=== PATIENT | female | born 1965 | race Caucasian/White ===

== ENCOUNTER 2021-12-17 13:16 | Emergency (ER) | payer OTHER, SELFPAY ==
[2021-12-17 13:45] VITALS: BP 148/70; PULSE 94; RESP 18; TEMP 36.4; O2SAT 98
--- NOTE | 2021-12-17 13:48 | ED.NAVMDI ---
HPI - Nausea/Vomiting/Diarrhea General Chief complaint: Nausea/Vomiting/Diarrhea Stated complaint: Vomiting,Diarrhea,lower back pain Time Seen by Provider: 12/17/21 13:48 Source: patient Mode of arrival: ambulatory History of Present Illness HPI Narrative: 56-year-old female with diabetes presented to the ER with a 6 hour history of -- multiple episodes of vomiting. Vomitus is clear. -- Multiple episodes of diarrhea. No abdominal pain or fever. No recent antibiotics. The patient is driving to [facility]. She has been eating out for the past few days. MD elicited complaint: nausea, vomiting and diarrhea Pertinent past history: anorexia Onset (ago): hour(s) ( 6 hours ago) Description of vomiting: watery Description of diarrhea: watery Associated nausea: Yes Associated abdominal pain: No Location of pain: none Severity: moderate Exacerbating factors: none Relieving factors: none Associated symptoms: denies other symptoms Related Data Allergies Allergy/AdvReac Type Severity Reaction Status Date / Time Latex, Natural Rubber Allergy Unknown Verified 12/17/21 14:07 Review of Systems Review of Systems: All systems reviewed & are unremarkable except as noted in HPI and below Constitutional: Constitutional: Reports as per HPI and Reports no additional constitutional complaints Eyes: Eyes: Reports as per HPI and Reports no additional eye complaints ENT: Reports system reviewed and no additional complaints, except as documented Cardiovascular: Cardiovascular: Reports as per HPI and Reports no additional cardiovascular complaints Respiratory: Respiratory: Reports as per HPI and Reports no additional respiratory complaints Gastrointestinal: Gastrointestinal: Reports as per HPI, Reports diarrhea, Reports nausea and Reports vomiting Genitourinary: Genitourinary: Reports no additional female genitourinary complaints Musculoskeletal: Musculoskeletal: Reports no additional musculoskeletal complaints and Reports as per HPI Neurologic: Reports system reviewed and no additional complaints, except as documented and Reports as per HPI Psychiatric: Psychiatric: Reports no additional psychiatric complaints and Reports as per HPI Endocrine: Endocrine: Reports no additional endocrine complaints Hematologic/Lymphatic: Hematologic/Lymphatic: Reports no additional hematologic/lymphatic complaints Allergic/Immunologic: Allergic/Immunologic: Reports no additional allergic/immunologic complaints [facility] Past Medical History Medical History (Updated 12/17/21 @ 16:23 by Irwin Donaldson MD) Diabetes mellitus Exam Const: General: no acute distress and alert Orientation/consciousness: patient oriented x3 HENMT: Head: normal to inspection Eyes: Pupils: Equal, round and reactive pupils present Neck: Neck: normal visual inspection Chest: Chest palpation & inspection: normal inspection of the chest Resp: Effort & Inspection: normal respiratory effort Auscultation: clear to auscultation bilaterally Cardio: Rate: regular rate Rhythm: regular rhythm GI: GI Palp: Yes Soft to palpation : General: Yes no CVA tenderness Back/Spine/Pelvis: Back: no CVA tenderness Skin: General skin exam: normal color Rashes: no rashes Neuro: General: patient oriented x3, moves all extremities, no meningeal signs, no focal motor deficits and CN's II-XI intact bilaterally Extrem: General: normal to inspection Psych: Mental Status: mental status grossly normal Affect: normal affect Course Course Emergency Course: Patient is getting IV fluids. She had normal urine output in the ER. Vital Signs Vital signs: Vital Signs Temperature 36.4 C L 12/17/21 13:45 Pulse Rate 94 12/17/21 13:45 Respiratory Rate 18 12/17/21 13:45 Blood Pressure 148/70 H 12/17/21 13:45 Pulse Oximetry 98 12/17/21 13:45 Temperature 36.4 C L 12/17/21 13:45 Pulse Rate 94 12/17/21 13:45 Respiratory Rate 18 12/17/21 13:45
[2021-12-17] MEDS: ONDANSETRON INJ 4 MG/2 ML VIAL IV PUSH (14:10)
[2021-12-17] MEDS: LACTATED RINGERS 1,000 ML 999 ML IV CONT (14:10)
[2021-12-17 14:18] LABS: Glucose Point of Care 137 mg/dl (65-105)
[2021-12-17 14:33] LABS: Basophils Absolute Auto 0.02 K/mm3 (0.00-0.10); Basophils Percent Auto 0.2 % (0.0-1.0); Eosinophils Absolute Auto 0.03 K/mm3 (0.02-0.50); Eosinophils Percent Auto 0.3 % (1.0-6.0); Hematocrit 39.2 % (35.0-49.0); Immature Granulocyte Absolute 0.03 K/mm3 (0.00-0.00); Immature Granulocyte Percent A 0.3 % (0.0-0.0); Lymphocytes Absolute Auto 0.39 K/mm3 (1.10-4.50); Mean Corpuscular HGB Conc 33.2 g/dL (32.0-36.0); Mean Corpuscular Hemoglobin 29.1 pg (27.0-31.0); Mean Corpuscular Volume 87.7 fL (78.0-102.0); Mean Platelet Volume 11.3 fl (9.2-11.8); Monocytes Absolute Auto 0.56 K/mm3 (0.10-0.90); Monocytes Percent Auto 5.7 % (2.0-11.0); Neutrophils Absolute Auto 8.7 K/mm3 (1.7-7.2); Neutrophils Percent Auto 89.5 % (50.0-70.0); Platelet Count Result 226 K/mm3 (150-420); Red Blood Count 4.47 M/mm3 (4.20-5.40); Red Cell Distribution Width 14.5 % (11.6-14.4); White Blood Count 9.7 K/mm3 (4.8-10.8)
[2021-12-17 14:48] LABS: Alanine Aminotransferase 18 U/L (14-59); Albumin Level 3.4 g/dL (3.4-5.0); Alkaline Phosphatase 66 U/L (46-116); Anion Gap 14 mmol/L (8-16); Aspartate Amino Transferase 20 U/L (15-37); Bilirubin,Total 0.6 mg/dL (0.00-1.00); Blood Urea Nitrogen 17 mg/dL (7-18); Calcium 9.2 mg/dL (8.5-10.1); Carbon Dioxide 22 mmol/L (21-32); Chloride 105 mmol/L (98-108); Estimated CRCL calculation 81 ml/min; Estimated Glomerular Filt Rate > 60; Glucose 180 mg/dL (70-99); Lipase 154 U/L (73-393); Osmolality Calculated 298 mOsm/kg (285-295); Potassium 3.9 mmol/L (3.5-5.1); Sodium 141 mmol/L (136-145)
[2021-12-17 14:55] LABS: Lactic Acid Reflex 2.3 mmol/L (0.4-2.0)
--- NOTE | 2021-12-17 14:57 | PC.NURSE ---
Covid swab obtained and walked to lab.
[2021-12-17 15:30] LABS: SARS-CoV-2 Ag Negative (Negative)
--- NOTE | 2021-12-17 16:15 | PC.NURSE ---
Pt ambulated to restroom and did well. Provided urine. LR bag still not completed. Will finish the bag before changing to NS. Dr. Donaldson notified and ok with plan.
[2021-12-17 16:27] LABS: Add Urine Microscopic? YES; Appearance Urine Clear (Clear); Bilirubin Urine Negative (Negative); Blood Urine Negative (Negative); Color Urine Light Yellow (Yellow); Glucose Urine UA 1+ (Negative); Ketones Urine 3+ (Negative); Leukocyte Esterase Ur Negative LEU/UL (Negative); Nitrate Urine Negative (Negative); Protein Urine Negative (Negative); Specific Grav Ur >= 1.030 (1.010-1.020); Urobilinogen Urine 0.2 mg/dL (0.2-1.0)
[2021-12-17 16:31] LABS: Bacteria Urine Trace /hpf; Mucus Urine Few /lpf; RBC Urine None seen /hpf (0-2); Squamous Epithelial Cell Urine Few /hpf (Few); WBC Urine None seen /hpf (0-3)
--- NOTE | 2021-12-17 16:49 | PC.NURSE ---
LR still not completed. Pt resting comfortably. Denies any needs or complaints at this time.
[2021-12-17 17:30] LABS: Reflex Lactic Acid Yes or No Add Lactic
[2021-12-17] MEDS: SODIUM CHLORIDE 0.9% IV 500 ML 999 ML IV CONT (17:45)
[2021-12-17 18:19] LABS: Lactic Acid 1.1 mmol/L (0.4-2.0)
[2021-12-17 18:50] VITALS: BP 144/61; PULSE 90; RESP 16; O2SAT 100
== END 2021-12-17 19:23 | disposition home or self-care (01) ==
PROVIDERS: Emergency Provider Internal Medicine Critical Care Medicine
DX: K52.9 Noninfective gastroenteritis and colitis, unspecified (principal); E11.9 Type 2 diabetes mellitus without complications; Z20.822 Contact with and (suspected) exposure to COVID-19
CPT/HCPCS: 36415; 80053; 81001; 82948; 83605; 83690; 85025; 87426; 96361; 96374; 99284; C9803; J2405; J7040; J7120